=== PATIENT | female | born 1965 | race Caucasian/White ===

== ENCOUNTER 2018-04-29 05:40 | Day surgery (SDC) | payer OTHER ==
[~2018-04-29 05:40] MED LIST: CLARITIN10 M2 PO; COREG CR20 MG PO; HYDROCHLOROTHIA25 MG PO; LOSARTAN POTAS100 MG PO; NORVASC2.5 M1 PO
[2018-04-29] MEDS ORDERED: TYLENOL EXTRA500 MG PO (13:01)
== END 2018-04-29 18:25 | disposition home or self-care (01) ==
LOC: CIR.AMB 05:40
DX: N84.0 Polyp of corpus uteri (principal)